=== PATIENT | male | born 1985 | race African-American/Black ===

== ENCOUNTER 2021-12-09 19:53 | Observation (INO) | payer BC, SELFPAY ==
[2021-12-09] VITALS (9 sets, daily range): BP systolic 173–219; BP diastolic 104–142; PULSE 88–98; RESP 18–25; TEMP 36.2; O2SAT 90–100
--- NOTE | ~2021-12-09 | XR_ITS ---
XR chest 2V DATE: 12/09/2021 21:15 INDICATION: Hypertension. Headache. TECHNIQUE: PA and lateral views COMPARISON: None FINDINGS: There is borderline heart size. Pulmonary vascular redistribution may indicate mild pulmonary venous hypertension. Clinical correlati on is advised. Minimal atelectasis at the right lung base, mild elevation right diaphragm. No pleural effusion. No pneumothorax. IMPRESSION: Borderline heart size, pulmonary vascular redistribution Mild elevation right diaphragm and mild atelectasis at right lung base Reviewed, dictated and finalized at location A.
--- NOTE | ~2021-12-09 | CT_ITS ---
EXAMINATION: CT brain wo con DATE: 12/09/2021 21:21 INDICATION: Headache. Hypertension. TECHNIQUE: Computed tomography (CT) of the head was performed without intravenous contrast. The mA wa s adjusted according to patient size. Iterative reconstruction technique was employed. Exam dose: 60 5.33 mGy-cm total exam DLP. COMPARISON: None FINDINGS: No intracranial mass lesion or hemorrhage or cerebrovascular accident. No midline shift or mass effect. Normal ventricular size. Normal bell-white matter differentiation. No subdural or epidural hematoma is detected. There is patchy soft tissue thickening of the ethmoid air cells. The included paranasal sinuses and m astoid air cells are otherwise unremarkable. No fracture or bone destruction of the cranial vault. IMPRESSION: No significant intracranial abnormality Reviewed, dictated and finalized at Location A. Reviewed, dictated and finalized at location A.
--- NOTE | ~2021-12-09 | US_ITS ---
EXAMINATION: US thyroid EXAM DATE: 12/10/2021 12:40 INDICATION: Thyromegaly. TECHNIQUE: Multiple grayscale and Doppler images of the thyroid were obtained (by a technologist who performed the scan) and subsequently reviewed. Individual nodules and recommendations may be reporte d in accordance with TI-RADS system as designated by the 2017 ACR White Paper TI-RADS committee. The re is no prior study for comparison. FINDINGS: The right thyroid lobe measures 8.7 x 3.5 x 2.8 cm, the left measuring 6.3 x 3.7 x 2.1 cm. Dimensions are severely enlarged. There is mildly diffusely heterogeneous thyroid echogenicity without any foca l nodule identified. IMPRESSION: 1. Severe thyromegaly. Reviewed, dictated and finalized at location B. IMPRESSION: 1. Severe thyromegaly.
--- NOTE | 2021-12-09 21:04 | ECG_ITS ---
Measurements Intervals [place] Rate: 89 P: 21 SC: 180 QRS: 46 QRSD: 103 T: 74 QT: 383 QTc: 467 Interpretive Statements SINUS RHYTHM INTRAVENTRICULAR CONDUCTION DELAY NONSPECIFIC T-WAVE ABNORMALITY ABNORMAL ECG NO PREVIOUS ECG AVAILABLE FOR COMPARISON Electronically Signed On 12-10-2021 15:43:34 CDT by Chilango Mcqueen M.D.
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
[2021-12-09 21:49] LABS: Basophils Absolute Auto 0.1 K/mm3 (0.0-0.1); Basophils Percent Auto 0.8 % (0.2-1.2); Eosinophils Absolute Auto 0.2 K/mm3 (0-0.3); Eosinophils Percent Auto 2.2 % (0-4.4); Hematocrit 50.8 % (42.0-52.0); Immature Granulocyte Absolute 0.04 K/mm3 (0.00-0.031); Immature Granulocyte Percent A 0.5 % (0-0.5); Lymphocytes Absolute Auto 3.13 K/mm3 (0.9-3.2); Lymphocytes Percent Auto 40.4 % (18.3-44.2); Mean Corpuscular HGB Conc 31.5 g/dl (32-36); Mean Corpuscular Hemoglobin 28.2 pg (26-34); Mean Corpuscular Volume 89.4 fl (80-100); Mean Platelet Volume 13.7 fl (7.4-10.4); Monocytes Absolute Auto 0.4 K/mm3 (0.1-0.6); Monocytes Percent Auto 4.7 % (2.6-8.5); Neutrophils Percent Auto 51.4 % (45.5-73.1); Platelet Count Result 146 k/mm3 (150-375); Red Blood Count 5.68 M/mm3 (4.6-6.20); Red Cell Distribution Width 12.7 % (11.5-14.5); White Blood Count 7.7 K/mm3 (4.5-10.0)
[2021-12-09 21:59] LABS: Alanine Aminotransferase 32 U/L (4-50); Albumin Level 4.2 g/dL (3.5-5.1); Alkaline Phosphatase 73 U/L (38-126); Anion Gap 8 mmol/L (8-16); Aspartate Amino Transferase 31 U/L (17-59); Bilirubin,Total 0.5 mg/dL (0.2-1.3); Blood Urea Nitrogen 10 mg/dL (9-20); Carbon Dioxide 26 mmol/L (22-30); Chloride 102 mmol/L (98-107); Estimated CRCL calculation 113 ml/min; Estimated Glomerular Filt Rate > 60; Glucose 131 mg/dL (65-110); Potassium 3.9 mmol/L (3.4-5.0); Sodium 136 mmol/L (137-145)
[2021-12-09 22:11] LABS: Troponin I 0.012 ng/mL (0.000-0.034)
[2021-12-09] MEDS: hydrALAZINE HCL 20 MG/ML VIAL 10 MG IV PUSH (22:21)
[2021-12-09 23:32] LABS: Mucus Urine Rare /lpf; RBC Urine 0-2 /hpf (0-2); WBC Urine 0-3 /hpf
[2021-12-09 23:35] LABS: Appearance Urine Clear (Clear); Bilirubin Urine Negative (Negative); Blood Urine Negative (Negative); Color Urine Yellow (Yellow); Glucose Urine UA Negative (Negative); Ketones Urine Negative (Negative); Leukocyte Esterase Ur Negative LEU/UL (Negative); Nitrate Urine Negative (Negative); Protein Urine Negative (Negative); Specific Grav Ur 1.025 (1.001-1.035); Urobilinogen Urine 0.2 mg/dL (<2.0)
[2021-12-09 23:37] LABS: Add Urine Microscopic? NO
[2021-12-10] VITALS (19 sets, daily range): BP systolic 149–204; BP diastolic 89–141; PULSE 64–96; RESP 17–24; TEMP 36.1–36.6; O2SAT 91–100; BMI 42.9
[2021-12-10] MEDS: LABETALOL HCL INJ 100 MG/20 ML VIAL 20 MG IV PUSH (00:37)
[2021-12-10] MEDS: hydrALAZINE 10 MG TABLET PO (03:40)
--- NOTE | 2021-12-10 05:58 | PC.NURSE ---
Dr Cm called at 0325am for Admission consult. sofia millerech
[2021-12-10] MEDS: cloNIDine 0.1 MG/24 HR PATCH 1 PATCH TRANSDERM (06:15)
--- NOTE | 2021-12-10 06:23 | PC.NURSE ---
03:15 Patient states he is unaware of any family history.
--- NOTE | 2021-12-10 06:26 | PCDIET ---
This patient, Holley Mclaughlin, was admitted to IMU status, and placed in IMU Room 232-01. Patient/family oriented to hospital policies and general routines including ID bracelet, bed and alarms, visiting hours, pain management, procedures, bathroom and other care routines, personal items, smoking policy, room service/diet, and visiting hours. Valuables list has been completed. Information on how to activate the Rapid Response Team has been discussed. Patient/Family are encouraged to report perceived risks to care and to ask questions if they do not understand what they are told or what they should do.
[2021-12-10] MEDS: amLODIPine BESYLATE 5 MG TABLET PO (11:37)
--- NOTE | 2021-12-10 12:08 | PC.NURSE ---
To Ultrasound per transporter and wheelchair. Ok per Dr. Lim to go without RN.
--- NOTE | 2021-12-10 12:40 | PC.NURSE ---
Back from Ultrasound per wheelchair and transporter.
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
--- NOTE | 2021-12-10 16:07 | PCCCNOTE ---
On 12/10/21, the student, [Imani Chisholm], provided care and completed [facility] documentation on this patient. I have reviewed the student's documentation and agree with the findings.
--- NOTE | 2021-12-10 17:36 | PC.NURSE ---
Discharge packet/meds discussed with patient. IVs out.
== END 2021-12-10 17:36 | disposition home or self-care (01) ==
LOC: ANHED 22:19 → ANHIMU 12-10 04:56
PROVIDERS: Physician Assistant; Admitting Provider Internal Medicine; Emergency Provider Emergency Medicine; Visit Provider Internal Medicine
DX: I16.0 Hypertensive urgency (principal); E01.0 Iodine-deficiency related diffuse (endemic) goiter; E66.01 Morbid (severe) obesity due to excess calories; R73.9 Hyperglycemia, unspecified; F10.10 Alcohol abuse, uncomplicated; F17.210 Nicotine dependence, cigarettes, uncomplicated
CPT/HCPCS: 36415; 70450; 71046; 76536; 80053; 81003; 84443; 84484; 85025; 85055; 93005; 96374; 96375; 99285; A9270; G0378; J0360

== ENCOUNTER 2025-01-28 09:45 | Outpatient (CLI) | payer OTHER, SELFPAY | END 2025-01-28 09:46 | disposition home or self-care (01) | LOC: MICIMG 09:46 | PROVIDERS: PCP Family Medicine; Visit Provider Physician Assistant | DX: M79.672 Pain in left foot (principal) | CPT/HCPCS: 73630 ==